=== PATIENT | male | born 1970 | race Caucasian/White ===

== ENCOUNTER 2020-07-30 15:06 | Emergency (ER) | payer SELFPAY ==
[~2020-07-30] VITALS: Ht 167.6 cm; Wt 72.7 kg
[2020-07-30] MEDS ORDERED: HYDROCODONE/ACETAMINOPHEN 5-325 MG TABLET PO ONE (16:00)
[2020-07-30 17:25] LABS: EOSINOPHILS % (AUTO) 10.5 % (1.0-6.0); HEMATOCRIT 30.7 % (41-53); HEMOGLOBIN 8.5 g/dL (13.5-17.5); LYMPHOCYTES # (AUTO) 2.6 K/uL (1.0-4.8); LYMPHOCYTES % (AUTO) 19.4 % (22.0-44.0); MEAN CORPUSCULAR HEMOGLOBIN 16.6 pg (26.0-34.0); MEAN CORPUSCULAR HGB CONC 27.6 G/dL (31.0-37.0); MEAN CORPUSCULAR VOLUME 60 fL (80-100); MONOCYTES # (AUTO) 0.9 K/uL (0.1-1.0); MONOCYTES % (AUTO) 6.9 % (2.0-9.0); NEUTROPHILS # (AUTO) 8.2 K/uL (1.8-7.7); NEUTROPHILS % (AUTO) 62.2 % (40.0-70.0); PLATELET COUNT (AUTO) 519 K/uL (150-450); RED BLOOD CELL COUNT(AUTO) 5.12 MIL/uL (4.50-5.90); RED CELL DISTRIBUTION WIDTH 20.1 % (11.5-14.5)
[2020-07-30 17:29] VITALS: BP 139/84
[2020-07-30 17:53] LABS: PLATELET MORPHOLOGY COMMENT LARGE PLTS PRESENT
== END 2020-07-30 18:17 | disposition home or self-care (01) ==
LOC: EMS 15:11
DX: K64.5 Perianal venous thrombosis (principal); D64.9 Anemia, unspecified
CPT/HCPCS: 99283